=== PATIENT | female | born 1990 | race African-American/Black ===

== ENCOUNTER 2025-01-16 22:02 | Emergency (ER) | payer OTHER, SELFPAY ==
[2025-01-16 22:04] VITALS: BP 159/96
[2025-01-16] MEDS: ZOFRAN ODT (ORALLY DISINTEGRATING) 4 MG PO (22:53)
--- NOTE | 2025-01-16 23:13 | ED.GENMED ---
History of Present Illness
General
Chief Complaint: Abdominal Pain
Source: patient
Exam Limitations: none
Time Seen by Provider: 01/16/25 23:11
Nursing documentation reviewed up to this point in time: agreed with
History of Present Illness
History of Present Illness:
34-year-old female with past medical history of epilepsy presents to the ER today with concerns of abdominal bloating and gas that have persisted for past few days. In general, she does report a history of bloating and looser stools for past few
months. They become more pronounced recently. She saw a GI specialist last week who was concerned that she might have possible celiac disease. Patient has not made changes in her diet yet. She has subsequent testing for celiac scheduled. She
reports that she is having trouble getting the lab work for celiac done at [facility] is requesting the blood work to be done today. Will add on celiac panel. Patient reports that she has had a decreased appetite the past day and also reports episodic
diarrhea. She has no history of fevers or chills, no recent long distance travel, no recent antibiotics or new medications.
Review of Systems
Review of Systems
All Other Systems: ROS reviewed and negative except as documented in HPI and ROS
Phy Exam
Physical Exam
Physical Exam:
General: Patient is well appearing and in no acute distress; non-toxic
Skin: Warm and dry, no rashes or lesions
Head: Normocephalic, atraumatic
Eyes: Sclera non-icteric. EOMs intact.
Cardiac: Regular rate and rhythm, no murmurs
Pulm: Normal respiratory effort, no wheezes, rales, rhonchi
Abdomen: Normoactive bowel sounds, no palpable abdominal mass, left upper quadrant tenderness to palpation
Neuro: CN II-XII intact, no focal neurologic deficits.
Psychiatric: Appropriate mood and affect.
Course
Orders/Labs/Results
Orders:
Orders
01/16/25 22:52
Ondansetron Orally Disint [Zofran Odt (Orally Disintegrating)] 4 mg .ROUTE .STK-MED ONE
01/16/25 22:53
Ondansetron Orally Disint [Zofran Odt (Orally Disintegrating)] 4 mg PO NOW STA
01/16/25 23:40
Complete Blood Count/With Diff Urgent
0.9% Sodium Chloride 1000 ml [Nss] 1,000 ml IV BOLUS
01/16/25 23:41
Ketorolac [Toradol] 15 mg IV NOW STA
Test Result ONCE
01/16/25 23:48
Ondansetron Injectable [Zofran] 4 mg .ROUTE .STK-MED ONE
01/16/25 23:50
Metoclopramide [Reglan] 10 mg IV NOW STA
01/16/25 23:54
Diphenhydramine [Benadryl] 50 mg IV NOW STA
Hydrocortisone Sod Succinate [Solu-Cortef] 200 mg IV NOW STA
01/17/25
CT Abd/pelvis W Iv Cont Urgent
Reason For Exam: Left sided abdominal pain
01/17/25 00:44
Comprehensive Metabolic Panel Urgent
HCG, Serum Qualitative Screen Urgent
Comment: REDRAW
IgA Urgent
Lipase Urgent
Comment: REDRAW
01/17/25 02:54
Amoxicillin 875 mg/Clav 125 mg [Augmentin 875 mg/125 mg] 1 tablet PO NOW STA
01/17/25 03:07
Ketorolac [Toradol] 15 mg IV NOW STA
Abnormal Lab Results
01/17/25 01/17/25
00:08 00:44
RBC 4.18 L 10^6/uL
(4.20-5.40)
Hct 36.9 L %
(37.0-47.0)
MCH 31.1 H pg
(27.0-31.0)
Abs Immat Gran (auto) 0.1 H 10^3/uL
(0-0.05)
Immature Gran % 1.0 H %
(0-0.5)
Creatinine 1.2 H mg/dL
(0.6-1.0)
01/17/25 00:08
01/17/25 00:44
Vital Signs
Initial and Last Documented VS:
Initial Vital Signs
Temp Pulse Resp BP Pulse Ox
98.7 F 83 18 159/96 95
01/16/25 22:04 01/16/25 22:04 01/16/25 22:04 01/16/25 22:04 01/16/25 22:04
Last Documented Vital Signs
Temp Pulse Resp BP Pulse Ox
98.7 F 80 12 113/80 100
01/16/25 22:04 01/17/25 03:00 01/17/25 03:00 01/17/25 03:00 01/17/25 03:00
MDM/Problems Addressed
Differential Diagnosis Includes:
Differentials include celiac disease, IBS, diverticulitis, colitis, gastritis
MDM/Problems Addressed:
34-year-old female presents the ER today with concerns of looser stools, abdominal pain, and nausea. On exam, she has stable vitals she is afebrile seems to be most tender in the left upper quadrant on exam. Labs reviewed, no leukocytosis, renal
function normal. She is not . CAT scan reveals small bowel diverticulitis in the left upper quadrant. Will cover with Augmentin. Discussed follow-up GI and primary care provider and strict return precautions. Patient stable for
discharge.
Chronic conditions affecting care:
seziure disorder
*Pulse Oximetry
SaO2: 95
Oxygen Mode of Delivery: Room air
Patient hypoxic: no
*Critical Care Note
Total Time (30-74mins, 75-104mins- exclusive of procedures): Not Applicable
Data Reviewed
Review of Other/Old Records Reveals: Records (no prior ER physician documentation to review )
Source: patient and records
ED Attending Note
-
Portions of this chart may have been created with voice recognition software.� Occasional wrong word or��sound alike� substitutions may have occurred due to the inherent limitations of voice recognition software.
Discharge Plan
Departure
Patient Disposition: Home (Routine Discharge)
Date of Disposition: 01/17/25
Time of Disposition: 02:41
Patient with high blood pressure during this ER visit?: Yes
Condition: Good
Discharge Problem:
Diverticulitis of small bowel
Instructions: Diverticulitis (DC), BLOOD PRESSURE
Prescriptions:
New
amoxicillin-pot clavulanate 875-125 mg tablet
1 tab PO BID Qty: 7 0RF
ondansetron HCl 4 mg tablet
4 mg PO Q4H PRN (Reason: nausea and vomiting) Qty: 10 0RF
Referrals:
Kiak Mauro MD [Active, Gastroenterology] - Call in 1-3 days for appt
Shahrzad Travis DO [Family Provider, Family Practice]
Activity Restrictions/Additional Instructions:
The antibiotic and zofran has been sent to your pharmacy.
Please follow up with your gastro [facility].
PLEASE RETURN TO THE ER SHOULD YOU DEVELOP FEVER, AN ACUTE WORSENING OF YOUR PAIN, CHEST PAIN, SHORTNESS OF BREATH, INTRACTABLE NAUSEA OR VOMITING.
Please follow up with your primary care provider.
Interventions
Interventions:
*Risk Screen - Suicide Last Done: 01/16/25 22:08
*General Assessment Last Done: 01/16/25 22:14
*Neglect/Abuse Screening Last Done: 01/16/25 22:08
*ED- Fall Risk Assessment Last Done: 01/16/25 22:08
*ED COVID-19 Vaccine History Last Done: 01/16/25 22:08
*ED Influenza Vaccine History Last Done: 01/16/25 22:08
*Nursing Disposition Last Done: 01/17/25 03:10
IW-Wejpdx-Trcufiylnx Assessment Last Done: 01/17/25 01:27
Discharge Date and Time
Discharge Date/Time: 01/17/25 03:15
Print Language: ARGENTINE
[2025-01-17] VITALS: BP 129/94
[2025-01-17] MEDS: TORADOL 15 MG IV ×2 (00:13→03:10)
[2025-01-17] MEDS: SOLU-CORTEF 200 MG IV (00:13)
[2025-01-17] MEDS: NSS 1000 IV (00:13)
[2025-01-17] MEDS: REGLAN 10 MG IV (00:14)
[2025-01-17 00:33] LABS: Hematocrit 36.9 % (37.0-47.0); Hemoglobin 13.0 g/dL (12.0-16.0); Mean Corp Hgb Conc. 35.2 g/dL (33.0-37.0); Mean Corpuscular Volume 88.3 fL (81.0-99.0); Nucleated Red Blood Cells % 0 %; Platelet Count 321 10^3/uL (130-400); Red Cell Dist. Width 12.1 % (11.5-14.5)
[2025-01-17] MEDS: BENADRYL 50 MG IV (00:47)
[2025-01-17 01:00] VITALS: BP 120/82
[2025-01-17 01:13] LABS: HCG, Serum Qualitative Screen Negative
[2025-01-17 01:23] LABS: ALT (SGPT) 11 U/L (0-35); AST (SGOT) 17 U/L (14-36); Albumin 3.9 g/dl (3.5-5.0); Alkaline Phosphatase 70 U/L (38-126); Blood Urea Nitrogen 10 mg/dl (7-17); Calcium 9.0 mg/dl (8.4-10.2); Carbon Dioxide 26 mmol/L (22-30); Chloride 104 mmol/L (98-107); Glucose 82 mg/dl (70-99); Lipase 67 U/L (23-300); Potassium 3.6 mmol/L (3.5-5.1); Sodium 138 mmol/L (135-145); Total Protein 6.9 g/dl (6.3-8.2); eGFR > 60.00
[2025-01-17 02:00] VITALS: BP 116/71
[2025-01-17 02:07] VITALS: BMI 34.6
[2025-01-17 03:00] VITALS: BP 113/80
[2025-01-17] MEDS: AUGMENTIN 875 MG/125 MG 1 TABLET PO (03:09)
== END 2025-01-17 03:15 | disposition home or self-care (01) ==
LOC: EMR 22:02
PROVIDERS: Physician Assistant; EMERGENCY PHYSICIAN Emergency Medicine; FAMILY PHYSICIAN Family Medicine
DX: K57.12 Diverticulitis of small intestine without perforation or abscess without bleeding (principal); G40.909 Epilepsy, unspecified, not intractable, without status epilepticus
CPT/HCPCS: 96374; 96375; 96376; 96361; 99284; 74177; 80053; 82784; 83516; 83690; 84703; 85025; 86231; Q9967